=== PATIENT | male | born 1945 | race Caucasian/White ===

== ENCOUNTER 2017-06-23 05:21 | Day surgery (SDC) | payer MEDICARE, OTHER ==
[2017-06-22 10:12] LABS: HEMATOCRIT 44.6 % (42.0-54.0); HEMOGLOBIN 15.6 g/dL (13.5-17.5); MCH 31.3 pg (26.0-34.0); MCV 89.6 fL (80.0-100.0); MEAN PLATELET VOLUME 10.2 fL (7.4-10.4); RBC 4.98 10x6/uL (4.20-6.10); RDW 12.6 % (11.5-14.5); WBC 4.7 10x3/uL (4.8-10.8)
[~2017-06-23] VITALS: Ht 188 cm; Wt 115.2 kg
--- NOTE | ~2017-06-23 | OP ---
PATIENT NAME: APRYL FELICIANO MEDICAL RECORD: [id number] :47 LOCATION:[facility] ADMISSION DATE: SURGEON: STEVE VARGAS MD DATE OF OPERATION: 06/23/2017 SURGEON: Steve Vargas MD ANESTHESIA: General anesthesia by Lalit Hart CRNA. PREOPERATIVE DIAGNOSES: Slow urinary stream, possible urethral stricture. POSTOPERATIVE DIAGNOSES: Obstructive BPH, bladder stones. No urethral stricture. PROCEDURES: Cystoscopy and bladder stone removal times 2. SPECIMENS: Bladder stones times 2. FINDINGS: No urethral stricture. Trilobar hyperplasia of the prostate with obstruction. Two disc-like 1 cm diameter bladder stones. There were single ureteral orifices bilaterally. No bladder tumors. Heavily trabeculated bladder with diverticula. ESTIMATED BLOOD LOSS: Minimal. CLINICAL HISTORY: This is a 71-year-old male, who has been complaining of a very slow urinary stream, which is sometimes split. He had a history of gonorrhea during the [place]. The organism was multi-drug resistant and it took 45 days for him to clear the infection. Thus, there is a possibility that he may have a urethral stricture accounting for his slow urinary flow. Before I started him for treatment of BPH, I wanted to be sure that there was no stricture. He comes today to have the urethral stricture, if present, incised. He was given the appropriate IV antibiotics human factors ergonomist to the OR. DESCRIPTION OF PROCEDURE: The patient was given induction of general anesthetic. He was placed in the dorsal lithotomy position and prepped and draped. A 21-Croatian cystoscope was used for visualization. He had lidocaine jelly inserted into the urethra. The penile urethra shows no strictures at all. Going into the prostate he has a large obstructive prostate. Going into the bladder, the bladder was heavily trabeculated. There were diverticula and cellules present. Single ureteral orifices are seen on each side. No bladder tumors were seen. Two flat disc-like bladder stones about the size of a dime, but much thicker were present in the diverticulum. Rigid grasping forceps were used and each of these stones was removed in turn. Because pulling these stones through the urethra would cause a lot of irritation, I inserted a 16-Croatian Cruz catheter for him to go home with. The patient will go home with the catheter and come back to my office in a couple of days to have the catheter removed. TRANSINT:[id number] Voice Confirmation ID: [id number] DOCUMENT ID: [id number] OPERATIVE REPORT [id number] APRYL FELICIANO ROBERT S MD at 1339 CC: [id number] DICTATION DATE: 06/23/17 1027 HUMAN FACTORS ERGONOMIST: 06/23/17 1318 [facility] 06/23/17 [place] [id number]
[~2017-06-23 05:21] MED LIST: TOPROL XL100 MG PO
[2017-06-23] MEDS ORDERED: MOBIC7.5 MG PO (07:37)
[2017-06-23] MEDS ORDERED: HYDROCODONE-APA1 TAB PO (07:37)
[2017-06-23] MEDS ORDERED: ZANAFLEX4 MG PO (07:37)
[2017-06-23] MEDS ORDERED: NEXIUM40 MG PO (07:38)
[2017-06-23] MEDS ORDERED: FISH OIL 1,2001 CAP PO (07:39)
[2017-06-23] MEDS ORDERED: MULTIPLE VITAMI1 TA1 PO (07:39)
[2017-06-23] MEDS ORDERED: SYSTANE 0.3-0.4%5 ML EACH EYE (07:40)
[2017-06-23 07:46] VITALS: BP 145/86; Ht 188 cm; Wt 115.2 kg
== END 2017-06-23 11:35 | disposition home or self-care (01) ==
LOC: D.OPS 05:21 → D.PAN 09:00 → D.OPS 11:35
PROVIDERS: Anesthesiology; Urology
DX: N21.0 Calculus in bladder (principal); N32.89 Other specified disorders of bladder; N40.1 Benign prostatic hyperplasia with lower urinary tract symptoms; N13.8 Other obstructive and reflux uropathy; R39.12 Poor urinary stream; Z01.812 Encounter for preprocedural laboratory examination

== ENCOUNTER 2017-07-15 05:50 | Day surgery (SDC) | payer MEDICARE, OTHER ==
[2017-07-14 13:42] LABS: HEMATOCRIT 40.7 % (42.0-54.0); HEMOGLOBIN 14.1 g/dL (13.5-17.5); MCH 31.1 pg (26.0-34.0); MCHC 34.6 g/dL (31.0-37.0); MCV 89.8 fL (80.0-100.0); MEAN PLATELET VOLUME 10.5 fL (7.4-10.4); RBC 4.53 10x6/uL (4.20-6.10); RDW 12.6 % (11.5-14.5); WBC 4.4 10x3/uL (4.8-10.8)
[2017-07-14 13:49] LABS: ANION GAP 12.8 mmol/L (8-16); CARBON DIOXIDE 27.9 mmol/L (21.0-32.0); CREATININE - SERUM 1.2 mg/dL (0.6-1.3); POTASSIUM - SERUM 3.7 mmol/L (3.5-5.1)
[~2017-07-15] VITALS: Ht 188 cm; Wt 115.2 kg
--- NOTE | ~2017-07-15 | OP ---
PATIENT NAME: APRYL FELICIANO MEDICAL RECORD: [id number] :47 LOCATION:[facility] ADMISSION DATE: SURGEON: STEVE VARGAS MD DATE OF OPERATION: 07/15/2017 SURGEON: Steve Vargas MD ANESTHESIA: General anesthesia by Adria Melgoza CRNA PREOPERATIVE DIAGNOSIS: Obstructive BPH. PROCEDURE: GreenLight laser transurethral resection of the prostate, power 80 viramontes, energy 15,090 kilojoules, laser on time 3 minutes 14 seconds. FINDINGS: Trilobar hyperplasia of the prostate with obstructive bladder neck. Trabeculated bladder with diverticuli. Bladder stone debris seen. No bladder tumors. BLOOD LOSS: None. CLINICAL HISTORY: This is a 71-year-old male who has been complaining of a slow urinary stream for some time. Earlier, I performed cystoscopy on him and noted an obstructive prostate. He also had stones in his bladder, which I removed. He was started on tamsulosin and finasteride. He did not take them as he could not tolerate the reaction from the tamsulosin. He wanted to proceed with GreenLight laser transurethral resection of his prostate. He is allergic to no medications. We gave him ampicillin/sulbactam 3 grams IV on-call to the OR. DESCRIPTION OF PROCEDURE: The patient was given induction of general anesthesia. He was then placed in the dorsal lithotomy position and prepped and draped. The laser resectoscope was placed with a 30-degree lens. Penile urethra was normal with no strictures and no obstruction. Going into the prostate, we did find the obstructive prostate as before. The verumontanum was clearly marked. Going into the bladder, there were no stones, but a lot of milk of calcium within the bladder swirling around as cloudiness. We used an Pets are family too evacuator to get rid of this excessive cloudy calcium buildup which would eventually form a bladder stone in the future. We were then able to introduce the laser fiber. Using 80 viramontes and going from the bladder neck to just proximal to the verumontanum, we resected the BPH tissue Prior to starting, I did also see the ureteral orifices and they were some distance away from the bladder neck. Once the tissue was resected down to the pseudocapsule of the prostate, we had a good urethral channel through the prostatic urethra. No bleeding of any kind was seen. The scope was removed. A 20-Vietnamese 3-way Cruz catheter was inserted into the bladder and the balloon was inflated with 25 cc of sterile water. The inflow port of the 3-way catheter was plugged using a catheter plug. The catheter was put to a leg bag drainage. The patient will be going home today. He will be instructed on how to remove the Cruz catheter himself tomorrow morning. I will then see him in follow up next week to see how he is voiding. TRANSINT:[id number] Voice Confirmation ID: [id number] DOCUMENT ID: [id number] OPERATIVE REPORT [id number] APRYL FELICIANO, STEVE Hensley MD at 1704 CC: [id number] DICTATION DATE: 07/15/17 1526 HYDRO TECHNICIAN: 07/15/[address] [facility] [address] [place] [address]
[~2017-07-15 05:50] MED LIST changes: +FISH OIL 1,2001 CAP PO; +FLOMAX0.4 MG PO; +HYDROCODONE-APA1 TAB PO; +MOBIC7.5 MG PO; +MULTIPLE VITAMI1 TA1 PO; +NEXIUM40 MG PO; +SYSTANE 0.3-0.4%5 ML EACH EYE; +ZANAFLEX4 MG PO
[2017-07-15 10:13] VITALS: BP 139/76; Ht 188 cm; Wt 115.2 kg
== END 2017-07-15 17:00 | disposition home or self-care (01) ==
LOC: D.OPS 05:50 → D.PAN 13:10 → D.OPS 14:30 → D.PAN 14:30 → D.OPS 17:00
PROVIDERS: Anesthesiology
DX: N40.0 Benign prostatic hyperplasia without lower urinary tract symptoms (principal); I25.10 Atherosclerotic heart disease of native coronary artery without angina pectoris; I10 Essential (primary) hypertension; Z01.812 Encounter for preprocedural laboratory examination

== ENCOUNTER → 2017-07-28 13:19 | Outpatient (CLI) | payer MEDICARE, OTHER ==
[2017-07-15 10:13] VITALS: BMI 32.7
== END | disposition home or self-care (01) ==
LOC: D.LABREF 13:19
DX: N39.0 Urinary tract infection, site not specified (principal)

== ENCOUNTER → 2018-01-20 07:41 | Outpatient (CLI) | payer MEDICARE, OTHER ==
[2017-07-15 10:13] VITALS: BMI 32.7
[2018-01-20 08:23] LABS: BASOPHILS 0.5 % (0-2); EOSINOPHILS 3.3 % (0-7); HEMATOCRIT 42.3 % (42.0-54.0); HEMOGLOBIN 14.9 g/dL (13.5-17.5); IMMATURE GRANULOCYTES 0.2 % (0-5); LYMPHOCYTES 39.9 % (15-50); MCH 31.6 pg (26.0-34.0); MCHC 35.2 g/dL (31.0-37.0); MCV 89.6 fL (80.0-100.0); MEAN PLATELET VOLUME 9.8 fL (7.4-10.4); MONOCYTES 8.7 % (2-11); NEUTROPHILS 47.4 % (40-80); PLATELET COUNT 119 10x3/uL (130-400); RBC 4.72 10x6/uL (4.20-6.10); RDW 12.6 % (11.5-14.5); WBC 4.2 10x3/uL (4.8-10.8)
[2018-01-20 08:58] LABS: ALBUMIN 3.7 g/dL (3.4-5.0); ALKALINE PHOSPHATASE 55 U/L (46-116); ALT (SGPT) 34 U/L (10-68); BILIRUBIN - TOTAL 0.83 mg/dL (0.2-1.3); CALC OSMOLALITY 280 mosm/kg (275-300); CALCIUM 8.4 mg/dL (8.5-10.1); CARBON DIOXIDE 30.5 mmol/L (21.0-32.0); CHLORIDE - SERUM 103 mmol/L (98-107); CHOL - HDL RATIO 6.7 ratio (2.3-4.9); CHOLESTEROL, TOTAL 241 mg/dL (0-200); CREATININE - SERUM 1.4 mg/dL (0.6-1.3); GLUCOSE 101 mg/dL (74-106); HDL CHOLESTEROL 36 mg/dL (32-96); SODIUM 140 mmol/L (136-145); TRIGLYCERIDE 426 mg/dL (30-200); UREA NITROGEN 19 mg/dL (7-18); eGFR NON AFRICAN AMERICAN 53 mL/min (90-120)
== END | disposition home or self-care (01) ==
LOC: D.LAB 07:41
PROVIDERS: Family Medicine
DX: Z00.00 Encounter for general adult medical examination without abnormal findings (principal); I25.10 Atherosclerotic heart disease of native coronary artery without angina pectoris; C44.91 Basal cell carcinoma of skin, unspecified; E78.4 Other hyperlipidemia; I10 Essential (primary) hypertension; Z12.5 Encounter for screening for malignant neoplasm of prostate

== ENCOUNTER → 2018-02-07 12:54 | Outpatient (CLI) | payer MEDICARE, OTHER ==
[2017-07-15 10:13] VITALS: BMI 32.7
== END | disposition home or self-care (01) ==
LOC: D.MRI 12:54
DX: M54.5 Low back pain (principal)

== ENCOUNTER → 2020-09-10 10:07 | Outpatient (CLI) | payer MEDICARE, OTHER ==
[2017-07-15 10:13] VITALS: BMI 32.7
[2020-09-10 10:39] LABS: BASOPHILS 0.8 % (0-2); EOSINOPHILS 3.6 % (0-7); HEMATOCRIT 45.1 % (42.0-54.0); HEMOGLOBIN 15.6 g/dL (13.5-17.5); IMMATURE GRANULOCYTES 0.3 % (0-5); LYMPHOCYTE ABS# 1.41 10x3/uL (1.32-3.57); MCH 30.9 pg (26.0-34.0); MCHC 34.6 g/dL (31.0-37.0); MCV 89.3 fL (80.0-100.0); MEAN PLATELET VOLUME 10.6 fL (7.4-10.4); MONOCYTES 7.9 % (2-11); NEUTROPHIL ABS# 2.02 10x3/uL (1.78-5.38); NEUTROPHILS 51.4 % (40-80); RBC 5.05 10x6/uL (4.20-6.10); RDW 12.6 % (11.5-14.5); WBC 3.9 10x3/uL (4.8-10.8)
[2020-09-10 10:55] LABS: PLATELET COUNT 151 10x3/uL (130-400)
[2020-09-10 11:10] LABS: ANION GAP 11.9 mmol/L (8-16); BILIRUBIN - TOTAL 0.88 mg/dL (0.2-1.3); CALCIUM 9.2 mg/dL (8.5-10.1); CARBON DIOXIDE 30.4 mmol/L (21.0-32.0); CREATININE - SERUM 1.3 mg/dL (0.6-1.3); LDL-HDL RATIO 3.1 ratio (1.5-3.5); POTASSIUM - SERUM 4.3 mmol/L (3.5-5.1); THYROID STIMULATING HORMONE 1.31 uIU/mL (0.36-3.74)
== END | disposition home or self-care (01) ==
LOC: D.LAB 10:07
PROVIDERS: ATTEND Family Medicine
DX: Z00.00 Encounter for general adult medical examination without abnormal findings (principal); I25.10 Atherosclerotic heart disease of native coronary artery without angina pectoris; E78.5 Hyperlipidemia, unspecified; I10 Essential (primary) hypertension; K20.90 Esophagitis, unspecified without bleeding; K57.30 Diverticulosis of large intestine without perforation or abscess without bleeding; N40.0 Benign prostatic hyperplasia without lower urinary tract symptoms; E55.9 Vitamin D deficiency, unspecified